=== PATIENT | female | born 1975 | race African-American/Black ===

== ENCOUNTER 2016-07-16 18:41 | Emergency (ER) | payer MEDICAID ==
[~2016-07-16] VITALS: Ht 167.6 cm; Wt 80.0 kg
[~2016-07-16 18:41] MED LIST: HYDR-519 PO; METH500T PO
[2016-07-16] MEDS ORDERED: GABA-531 PO (19:03)
[2016-07-16] MEDS ORDERED: IBUP-1510 PO (19:03)
[2016-07-16] MEDS ORDERED: HYDROCODONE/ACETAMINOPHEN 5/325MG TABLET PO ONE (22:00)
[2016-07-16 22:59] LABS: CLARITY URINE TURBID (CLEAR); COLOR URINE RED (YELLOW); GLUCOSE URINE NEGATIVE (NEGATIVE); KETONES URINE NEGATIVE (NEGATIVE); LEUKOCYTE ESTERASE URINE 3+ (NEGATIVE); NITRITE URINE NEGATIVE (NEGATIVE); OCCULT BLOOD URINE 3+ (NEGATIVE); PH URINE 7.5 (4.5-8.0); PROTEIN URINE 2+ (NEGATIVE); UROBILINOGEN URINE 0.2 E.U./dL (0.2-1.0)
[2016-07-16 23:26] LABS: BACTERIA URINE 2+; SQUAMOUS EPITHELIAL CELL URINE 1+ /lpf (RARE/1+)
[2016-07-16 23:27] LABS: RBC URINE TNTC /hpf (0-2); WBC URINE TNTC /hpf (0-2)
[2016-07-17] MEDS ORDERED: KETOROLAC 60MG/2ML VIAL IM ONE (00:15)
[2016-07-17 01:35] VITALS: BP 126/78
== END 2016-07-17 01:42 | disposition home or self-care (01) ==
LOC: ER 20:49
DX: N39.0 Urinary tract infection, site not specified (principal); M54.30 Sciatica, unspecified side; M19.90 Unspecified osteoarthritis, unspecified site; F12.10 Cannabis abuse, uncomplicated; Z98.890 Other specified postprocedural states
CPT/HCPCS: 81001; 96372; 99283; J1885

== ENCOUNTER 2016-12-31 13:45 | Emergency (ER) | payer MEDICAID ==
[~2016-12-31] VITALS: Ht 160 cm; Wt 70.0 kg
[~2016-12-31 13:45] MED LIST changes: +GABA-531 PO; -HYDR-519 PO; +IBUP-2030 PO; -METH500T PO
[2016-12-31] MEDS ORDERED: KETOROLAC 60MG/2ML VIAL IM ONE (16:30)
[2016-12-31 17:00] LABS: CLARITY URINE TURBID (CLEAR); COLOR URINE DARK YELLOW (YELLOW); GLUCOSE URINE NEGATIVE (NEGATIVE); KETONES URINE NEGATIVE (NEGATIVE); LEUKOCYTE ESTERASE URINE 3+ (NEGATIVE); NITRITE URINE NEGATIVE (NEGATIVE); OCCULT BLOOD URINE 3+ (NEGATIVE); PROTEIN URINE 3+ (NEGATIVE); SPECIFIC GRAVITY URINE 1.018 (1.005-1.030); UROBILINOGEN URINE 0.2 E.U./dL (0.2-1.0)
[2016-12-31 17:13] LABS: *AMPHETAMINES SCREEN URINE NEGATIVE (NEGATIVE); *BARBITURATES SCREEN URINE NEGATIVE (NEGATIVE); *BENZODIAZEPINES SCREEN URINE NEGATIVE (NEGATIVE); *COCAINE SCREEN URINE NEGATIVE (NEGATIVE); METHADONE URINE SCREEN NEGATIVE (NEGATIVE); OPIATES URINE SCREEN NEGATIVE (NEGATIVE); PHENCYCLIDINE URINE SCREEN NEGATIVE (NEGATIVE)
[2016-12-31 17:16] LABS: CANNABINOID URINE SCREEN PRESUMTIVE POSITIVE (NEGATIVE)
[2016-12-31 17:42] LABS: BASOPHILS % 0.6 % (0.0-2.0); EOSINOPHILS % 1.1 % (0.0-5.0); HEMATOCRIT. 34.6 % (36.0-48.0); HEMOGLOBIN. 11.4 g/dL (12.0-16.0); LYMPHOCYTES % 48.4 % (20.0-50.0); MEAN CORPUSCULAR HEMOGLOBIN 31.4 pg (28.0-32.0); MEAN CORPUSCULAR VOLUME 95.1 fL (81.0-99.0); MEAN PLATELET VOLUME 7.6 fl (7.4-10.4); MONOCYTES % 5.7 % (2.0-8.0); NEUTROPHILS % 44.2 % (40.0-76.0); PLATELET 212 x1000/uL (130-400); RED BLOOD CELL COUNT 3.63 mill/uL (4.2-5.4); RED CELL DISTRIBUTION WIDTH 15.6 % (11.6-14.6)
[2016-12-31 17:48] LABS: CARBON DIOXIDE 29 mEq/L (21-32); CHLORIDE 104 mEq/L (98-107)
[2016-12-31 18:22] VITALS: BP 155/85
[2017-01-25] MEDS ORDERED: BC POWDER PO (14:56)
[2017-01-25] MEDS ORDERED: BACL-141 PO (14:56)
[2017-01-25] MEDS ORDERED: IBUP-2029 PO (14:56)
[2017-01-25] MEDS ORDERED: TRAZ-132 PO (14:56)
== END 2016-12-31 18:50 | disposition home or self-care (01) ==
LOC: ER 16:21
DX: N39.0 Urinary tract infection, site not specified (principal); R31.0 Gross hematuria; D25.9 Leiomyoma of uterus, unspecified; Z85.3 Personal history of malignant neoplasm of breast; Z90.12 Acquired absence of left breast and nipple; F17.210 Nicotine dependence, cigarettes, uncomplicated; F12.90 Cannabis use, unspecified, uncomplicated
CPT/HCPCS: 36415; 76830; 76856; 80048; 80305; 81001; 81025; 85025; 96372; 99285; J1885; Z7610

== ENCOUNTER 2017-04-15 11:11 | Emergency (ER) | payer MEDICAID ==
[~2017-04-15] VITALS: Ht 160 cm; Wt 64.0 kg
[~2017-04-15 11:11] MED LIST changes: +BACL-141 PO; +BC POWDER PO; +IBUP-2029 PO; -IBUP-2030 PO; +TRAZ-132 PO
[2017-04-15 11:26] VITALS: BP 99/70
[2017-04-15 14:29] LABS: BASOPHILS % 0.5 % (0.0-2.0); EOSINOPHILS % 1.2 % (0.0-5.0); HEMATOCRIT. 34.9 % (36.0-48.0); HEMOGLOBIN. 11.7 g/dL (12.0-16.0); LYMPHOCYTES % 38.5 % (20.0-50.0); MEAN CORPUSCULAR HEMOGLOBIN 32.2 pg (28.0-32.0); MEAN CORPUSCULAR VOLUME 96.1 fL (81.0-99.0); MEAN PLATELET VOLUME 7.4 fl (7.4-10.4); NEUTROPHILS % 53.8 % (40.0-76.0); PLATELET 305 x1000/uL (130-400); RED BLOOD CELL COUNT 3.64 mill/uL (4.2-5.4); RED CELL DISTRIBUTION WIDTH 15.8 % (11.6-14.6)
[2017-04-15 14:37] LABS: PARTIAL THROMBOPLASTIN TIME 28.9 sec (23.4-31.0); PROTHROMBIN TIME 10.1 sec (9.4-11.6)
[2017-04-15 14:49] LABS: CARBON DIOXIDE 26 mEq/L (21-32); CHLORIDE 103 mEq/L (98-107); TROPONIN I <0.01 ng/mL ng/mL (0.00-0.04)
[2017-04-15 14:50] LABS: HCG SCREEN NEGATIVE
[2017-04-15 18:11] LABS: CLARITY URINE TURBID (CLEAR); COLOR URINE DARK YELLOW (YELLOW); KETONES URINE TRACE (NEGATIVE); LEUKOCYTE ESTERASE URINE 3+ (NEGATIVE); NITRITE URINE NEGATIVE (NEGATIVE); OCCULT BLOOD URINE 3+ (NEGATIVE); PROTEIN URINE 3+ (NEGATIVE); SPECIFIC GRAVITY URINE 1.022 (1.005-1.030)
== END 2017-04-15 20:00 | disposition left against medical advice (07) ==
LOC: ER 12:28
DX: R07.9 Chest pain, unspecified (principal); I10 Essential (primary) hypertension; F17.200 Nicotine dependence, unspecified, uncomplicated
CPT/HCPCS: 36415; 71045; 80053; 81001; 83690; 84484; 84703; 85025; 85610; 85730; 93005; 99285

== ENCOUNTER 2023-12-08 07:40 | Emergency (ER) | payer MEDICAID, OTHER ==
[~2023-12-08] VITALS: Ht 167.6 cm; Wt 95.0 kg
[~2023-12-08 07:40] MED LIST changes: -GABA-531 PO; +GABA-532 PO; -TRAZ-132 PO; +TRAZ-252 PO
[2023-12-08 07:59] VITALS: O2SAT 99
[2023-12-08 08:19] LABS: BASOPHILS % 0.3 % (0.0-2.0); EOSINOPHILS % 0.3 % (0.0-5.0); HEMATOCRIT. 40.8 % (36.0-48.0); HEMOGLOBIN. 13.2 g/dL (12.0-16.0); LYMPHOCYTES % 19.5 % (20.0-50.0); MEAN CORPUSCULAR HEMOGLOBIN 30.5 pg (28.0-32.0); MEAN CORPUSCULAR HGB CONC 32.4 g/dL (31.0-37.0); MEAN CORPUSCULAR VOLUME 94.1 fL (81.0-99.0); MEAN PLATELET VOLUME 7.4 fl (7.4-10.4); MONOCYTES % 8.8 % (2.0-8.0); NEUTROPHILS % 71.1 % (40.0-76.0); PLATELET 230 x1000/uL (130-400); RED BLOOD CELL COUNT 4.33 mill/uL (4.2-5.4); RED CELL DISTRIBUTION WIDTH 15.1 % (11.6-14.6); WHITE BLOOD COUNT 13.1 x1000/uL (4.5-11.0)
[2023-12-08] MEDS: ONDANSETRON HCL 4MG/2ML INJ IV STA (08:23)
[2023-12-08] MEDS: KETOROLAC 30MG/ML VIAL IV STA (08:23)
[2023-12-08] MEDS: MORPHINE SULFATE 4 MG/ML INJ (FOR IV/IM USE) IV STA (08:23)
[2023-12-08 08:26] LABS: PROTHROMBIN TIME 10.8 sec (9.6-11.0)
[2023-12-08 08:29] LABS: CHLORIDE 105 mEq/L (98-107); POTASSIUM 3.9 mEq/L (3.5-5.1); SODIUM 135 mEq/L (136-145)
[2023-12-08 08:30] LABS: CALCIUM 9.5 mg/dL (8.7-10.4); CARBON DIOXIDE 23 mEq/L (21-32)
[2023-12-08] MEDS: SODIUM CHLORIDE 0.9% 1,000 ML IV ONE (08:30)
[2023-12-08 08:35] LABS: CREATININE 0.9 mg/dL (0.6-1.0); GLUCOSE 116 mg/dL (70-105); UREA NITROGEN BLOOD 10 mg/dL (9-23)
[2023-12-08 08:50] LABS: TROPONIN I HIGH SENSITIVITY < 4 ng/L (3.0-34)
[2023-12-08 09:07] LABS: ALANINE AMINOTRANSFERASE 20 IU/L (10-49); ALBUMIN 4.5 g/dL (3.2-4.8); ASPARTATE AMINOTRANSFERASE 24 IU/L (<34); BILIRUBIN DIRECT 0.1 mg/dL (<=3.0); BILIRUBIN TOTAL 0.6 mg/dL (0.1-1.0); PROTEIN TOTAL 7.2 g/dL (6.0-8.3)
[2023-12-08 09:31] VITALS: TEMP 36.83628
[2023-12-08 10:32] VITALS: O2SAT 96
[2023-12-08 11:27] LABS: *AMPHETAMINES SCREEN URINE NEGATIVE (NEGATIVE); *BARBITURATES SCREEN URINE NEGATIVE (NEGATIVE); *BENZODIAZEPINES SCREEN URINE NEGATIVE (NEGATIVE); *COCAINE SCREEN URINE NEGATIVE (NEGATIVE); METHADONE URINE SCREEN NEGATIVE (NEGATIVE)
[2023-12-08 11:28] LABS: CANNABINOID URINE SCREEN PRESUMPTIVE POSITIVE (NEGATIVE); ECSTASY MDMA SCREEN URINE NEGATIVE (NEGATIVE); OPIATES URINE SCREEN PRESUMPTIVE POSITIVE (NEGATIVE); PHENCYCLIDINE URINE SCREEN NEGATIVE (NEGATIVE)
[2023-12-08 13:33] VITALS: BP 116/76; PULSE 97; RESP 24
[2023-12-08] MEDS: MORPHINE SULFATE 4 MG/ML INJ (FOR IV/IM USE) IV ONE (13:33)
== END 2023-12-08 14:34 | disposition left against medical advice (07) ==
LOC: ER 08:00 → EDBEDREQTM 14:06 → EDBEDREQ 14:06 → ER 14:34 → CANBEDREQ 14:34
DX: R07.9 Chest pain, unspecified (principal); A18.4 Tuberculosis of skin and subcutaneous tissue; F12.90 Cannabis use, unspecified, uncomplicated; Z98.890 Other specified postprocedural states; Z87.442 Personal history of urinary calculi; Z20.822 Contact with and (suspected) exposure to COVID-19
CPT/HCPCS: 80076; 80305; 80048; 80320; 83880; 85025; 85379; 85610; 84484; 36415; 71045; 71275; 93005; 96361; 96374; 96375; 96376; 99285; 87426; J1885; J2405; J2270; J7030; Z7610 ×3; G0480